=== PATIENT | male | born 1970 | race African-American/Black ===

== ENCOUNTER 2023-02-01 18:25 | Inpatient (IN) | payer OTHER ==
[2023-02-01 20:04] VITALS: BMI 18.7
[2023-02-01] MEDS ORDERED: MAGNESIUM HYDROX 2400MG/30ML ORAL SUSPENSION 30 ML CUP PO PRN (20:22)
[2023-02-01] MEDS ORDERED: POLYETHYLENE GLYCOL (HEALTHYLAX) 3350 17 GM PACKET PO PRN (20:22)
[2023-02-01] MEDS ORDERED: BISMUTH SUBSALICYLATE 524 MG/30 ML PO PRN (20:22)
[2023-02-01] MEDS ORDERED: BENZOCAINE/MENTHOL (CHLORASEPTIC ) LOZENGE MM PRN (20:22)
[2023-02-01] MEDS ORDERED: NICOTINE POLACRILEX 2 MG GUM BUC PRN (20:22)
[2023-02-01] MEDS ORDERED: ACETAMINOPHEN 325 MG TABLET (FP) PO PRN (20:22)
[2023-02-01] MEDS ORDERED: MAG HYDROX/AL HYDROX/SIMETH 30 ML UNIT-DOSE CUP PO PRN (20:22)
[2023-02-01] MEDS ORDERED: BENZONATATE 200 MG CAPSULE PO PRN (20:22)
[2023-02-01] MEDS ORDERED: chlordiazePOXIDE HCL 25 MG CAPSULE PO PRN (20:22)
[2023-02-01] MEDS ORDERED: IBUPROFEN 400 MG TABLET (FP) PO PRN (20:22)
[2023-02-01] MEDS ORDERED: ONDANSETRON *ODT* 4 MG TABLET SL PRN (20:22)
[2023-02-01] MEDS ORDERED: LOPERAMIDE HCL 2 MG CAPSULE PO PRN (20:22)
[2023-02-01] MEDS ORDERED: NALOXONE HCL (KLOXXADO) 8 MG SPRAY NS PRN (20:22)
[2023-02-01] MEDS ORDERED: NALOXONE HCL 0.4 MG/ML VIAL IM PRN (20:22)
[2023-02-01] MEDS ORDERED: DICYCLOMINE HCL 10 MG CAPSULE PO PRN (20:22)
[2023-02-01] MEDS ORDERED: IBUPROFEN 600 MG TABLET (FP) PO PRN (20:22)
[2023-02-01] MEDS ORDERED: guaiFENesin 600 MG TABLET.ER (FP) PO PRN (20:22)
[2023-02-01] MEDS: THIAMINE HCL 100 MG TABLET (FP) PO SCH (22:02)
[2023-02-01] MEDS: chlordiazePOXIDE HCL 25 MG CAPSULE PO SCH (22:03)
[2023-02-01] MEDS: MELATONIN 5 MG TABLETS PO SCH (22:03)
[2023-02-02] MEDS: chlordiazePOXIDE HCL 25 MG CAPSULE PO SCH ×4 (05:42→22:15)
[2023-02-02] MEDS: PRENATAL VITAMINS W/ FOLIC ACID TABLET (FP) PO SCH (10:08)
[2023-02-02] MEDS: NICOTINE 21 MG/24 HOURS TOPICAL PATCH TD SCH (10:11)
[2023-02-02 11:02] LABS: POTASSIUM 4.1 mmol/L (3.5-5.1)
[2023-02-02 11:05] LABS: HEMATOCRIT 34.7 % (35.4-49); MCH 31.9 pg (25.7-33.7); MCHC 34.6 g/dl (32.0-35.9); MEAN CELL VOLUME 92.3 fl (80-96); MEAN PLT VOLUME 9.7 fl (7.5-11.1); PLATELET COUNT 197 10^3/uL (134-434); RBC 3.76 M/mm3 (4.00-5.60); RDW 13.6 % (11.9-15.9); WHITE BLOOD COUNT 5.7 K/mm3 (4.0-10.0)
[2023-02-02 11:12] LABS: CALCIUM 9.4 mg/dL (8.5-10.1)
[2023-02-02 11:13] LABS: ALBUMIN 3.2 g/dl (3.4-5.0); BLOOD UREA NITROGEN 7.8 mg/dL (7-18)
[2023-02-02 11:16] LABS: CREATININE 0.9 mg/dL (0.55-1.3)
[2023-02-02 11:18] LABS: BILIRUBIN,TOTAL 0.8 mg/dL (0.2-1)
[2023-02-02 11:20] LABS: TOT PROT 7.2 g/dl (6.4-8.2)
[2023-02-02] MEDS: VALPROIC ACID 250 MG CAPSULE PO SCH ×2 (11:34→22:57)
[2023-02-02] MEDS ORDERED: FLU VACC QS2022-23(6MOS UP)/PF 60 MCG/0.5 ML SYRINGE IM ONE (12:00)
[2023-02-02] MEDS ORDERED: PNEUMOC 20-VAL CONJ-DIP CRM/PF 0.5 ML SYRINGE IM ONE (12:00)
[2023-02-02] MEDS: levETIRAcetam 250 MG TABLET PO SCH ×2 (14:22→22:14)
[2023-02-02] MEDS: THIAMINE HCL 100 MG TABLET (FP) PO SCH (22:14)
[2023-02-02] MEDS: MELATONIN 5 MG TABLETS PO SCH (22:14)
[2023-02-03] MEDS: chlordiazePOXIDE HCL 25 MG CAPSULE PO SCH ×4 (05:41→22:27)
[2023-02-03] MEDS: levETIRAcetam 250 MG TABLET PO SCH ×2 (10:16→22:24)
[2023-02-03] MEDS: VALPROIC ACID 250 MG CAPSULE PO SCH ×2 (10:16→22:25)
[2023-02-03] MEDS: PRENATAL VITAMINS W/ FOLIC ACID TABLET (FP) PO SCH (10:16)
[2023-02-03] MEDS: NICOTINE 21 MG/24 HOURS TOPICAL PATCH TD SCH (10:17)
[2023-02-03] MEDS ORDERED: FLU VACC QS2022-23(6MOS UP)/PF 60 MCG/0.5 ML SYRINGE IM ONE (12:00)
[2023-02-03] MEDS ORDERED: PNEUMOC 20-VAL CONJ-DIP CRM/PF 0.5 ML SYRINGE IM ONE (12:00)
[2023-02-03] MEDS: THIAMINE HCL 100 MG TABLET (FP) PO SCH (22:24)
[2023-02-03] MEDS: MELATONIN 5 MG TABLETS PO SCH (22:24)
[2023-02-04] MEDS ORDERED: chlordiazePOXIDE HCL 10 MG CAPSULE PO PRN
[2023-02-04] MEDS: chlordiazePOXIDE HCL 10 MG CAPSULE PO SCH ×4 (05:51→22:16)
[2023-02-04] MEDS: PRENATAL VITAMINS W/ FOLIC ACID TABLET (FP) PO SCH (10:11)
[2023-02-04] MEDS: levETIRAcetam 250 MG TABLET PO SCH ×2 (10:11→22:12)
[2023-02-04] MEDS: VALPROIC ACID 250 MG CAPSULE PO SCH ×2 (10:13→22:13)
[2023-02-04] MEDS: NICOTINE 21 MG/24 HOURS TOPICAL PATCH TD SCH (10:14)
[2023-02-04] MEDS ORDERED: PNEUMOC 20-VAL CONJ-DIP CRM/PF 0.5 ML SYRINGE IM ONE (12:00)
[2023-02-04] MEDS: MELATONIN 5 MG TABLETS PO SCH (22:12)
[2023-02-04] MEDS: THIAMINE HCL 100 MG TABLET (FP) PO SCH (22:12)
[2023-02-05] MEDS: chlordiazePOXIDE HCL 10 MG CAPSULE PO SCH ×2 (05:37→17:52)
[2023-02-05] MEDS: PRENATAL VITAMINS W/ FOLIC ACID TABLET (FP) PO SCH (10:34)
[2023-02-05] MEDS: VALPROIC ACID 250 MG CAPSULE PO SCH ×2 (10:35→22:10)
[2023-02-05] MEDS: levETIRAcetam 250 MG TABLET PO SCH ×2 (10:35→22:10)
[2023-02-05] MEDS: NICOTINE 21 MG/24 HOURS TOPICAL PATCH TD SCH (10:36)
[2023-02-05] MEDS: MELATONIN 5 MG TABLETS PO SCH (22:10)
[2023-02-05] MEDS: THIAMINE HCL 100 MG TABLET (FP) PO SCH (22:10)
[2023-02-06] MEDS ORDERED: chlordiazePOXIDE HCL 10 MG CAPSULE PO ONE (05:00)
[2023-02-06] MEDS: PRENATAL VITAMINS W/ FOLIC ACID TABLET (FP) PO SCH (10:23)
[2023-02-06] MEDS: VALPROIC ACID 250 MG CAPSULE PO SCH (10:23)
[2023-02-06] MEDS: levETIRAcetam 250 MG TABLET PO SCH (10:24)
[2023-02-06] MEDS: NICOTINE 21 MG/24 HOURS TOPICAL PATCH TD SCH (10:25)
[2023-02-06 13:32] VITALS: BP 129/86; PULSE 96; RESP 18; TEMP 98.1
== END 2023-02-06 03:15 | disposition other institution (70) | DRG 774 ==
LOC: YASAS 18:25 → Y3N 21:34
PROVIDERS: ADMIT Allergy & Immunology; ATTEND Surgery
PROC: HZ2ZZZZ Detoxification Services for Substance Abuse Treatment (ICD-10-PCS; principal; 2023-02-01)
DX: F10.230 Alcohol dependence with withdrawal, uncomplicated (principal); F14.20 Cocaine dependence, uncomplicated; F12.20 Cannabis dependence, uncomplicated; F17.210 Nicotine dependence, cigarettes, uncomplicated; F31.9 Bipolar disorder, unspecified; F19.282 Other psychoactive substance dependence with psychoactive substance-induced sleep disorder; F43.10 Post-traumatic stress disorder, unspecified; G40.909 Epilepsy, unspecified, not intractable, without status epilepticus; I10 Essential (primary) hypertension; Z62.810 Personal history of physical and sexual abuse in childhood; Z91.410 Personal history of adult physical and sexual abuse; Z87.820 Personal history of traumatic brain injury; Z99.89 Dependence on other enabling machines and devices
CPT/HCPCS: 36415; 80053; 85027; 86593; 86780; 90677; 93005; 93010; C9803-CS; G0008; Q2036; U0003; U0005

== ENCOUNTER 2023-02-06 14:40 | Inpatient (IN) | payer OTHER ==
[2023-02-06] MEDS ORDERED: MAG HYDROX/AL HYDROX/SIMETH 30 ML UNIT-DOSE CUP PO PRN (17:27)
[2023-02-06] MEDS ORDERED: P-EPHED 60MG/TRIPROLIDI 2.5MG TABLET PO PRN (17:27)
[2023-02-06] MEDS ORDERED: ACETAMINOPHEN 325 MG TABLET (FP) PO PRN (17:27)
[2023-02-06] MEDS ORDERED: LOPERAMIDE HCL 2 MG CAPSULE PO PRN (17:27)
[2023-02-06] MEDS ORDERED: IBUPROFEN 600 MG TABLET (FP) PO PRN (17:27)
[2023-02-06] MEDS ORDERED: BENZOCAINE/MENTHOL (CHLORASEPTIC ) LOZENGE MM PRN (17:27)
[2023-02-06] MEDS ORDERED: guaiFENesin 600 MG TABLET.ER (FP) PO PRN (17:27)
[2023-02-06] MEDS ORDERED: POLYETHYLENE GLYCOL (HEALTHYLAX) 3350 17 GM PACKET PO PRN (17:27)
[2023-02-06] MEDS ORDERED: COLLOIDAL OATMEAL 1 BAR EACH TP PRN (17:27)
[2023-02-06] MEDS ORDERED: NICOTINE 10 MG CARTRIDGE (INHALER) IH PRN (17:27)
[2023-02-06] MEDS ORDERED: IBUPROFEN 400 MG TABLET (FP) PO PRN (17:27)
[2023-02-06] MEDS ORDERED: AMMONIUM LACTATE 12% LOTION 225 GM BOTTLE TP PRN (17:27)
[2023-02-06] MEDS ORDERED: NICOTINE POLACRILEX 2 MG GUM BUC PRN (17:27)
[2023-02-06] MEDS ORDERED: BENZONATATE 200 MG CAPSULE PO PRN (17:27)
[2023-02-06] MEDS ORDERED: MAGNESIUM HYDROX 2400MG/30ML ORAL SUSPENSION 30 ML CUP PO PRN (17:27)
[2023-02-06] MEDS ORDERED: TUBERCULIN PPD 5 TU/0.1ML VIAL ID ONE (19:17)
[2023-02-06] MEDS: THIAMINE HCL 100 MG TABLET (FP) PO SCH (21:32)
[2023-02-06] MEDS: VALPROIC ACID 250 MG CAPSULE PO SCH (21:33)
[2023-02-06] MEDS: MELATONIN 5 MG TABLETS PO SCH (21:33)
[2023-02-06] MEDS ORDERED: levETIRAcetam 500 MG TABLET (FP) PO SCH (22:00)
[2023-02-06] MEDS: levETIRAcetam 250 MG TABLET PO SCH (22:09)
[2023-02-07] MEDS: levETIRAcetam 250 MG TABLET PO SCH ×2 (09:55→21:32)
[2023-02-07] MEDS: VALPROIC ACID 250 MG CAPSULE PO SCH ×2 (09:56→21:32)
[2023-02-07] MEDS: PRENATAL VITAMINS W/ FOLIC ACID TABLET (FP) PO SCH (09:56)
[2023-02-07] MEDS: MELATONIN 5 MG TABLETS PO SCH (21:31)
[2023-02-07] MEDS: THIAMINE HCL 100 MG TABLET (FP) PO SCH (21:31)
[2023-02-07] MEDS: QUEtiapine FUMARATE 50 MG TABLET PO SCH (21:33)
[2023-02-08] MEDS: levETIRAcetam 250 MG TABLET PO SCH ×2 (09:57→21:27)
[2023-02-08] MEDS: VALPROIC ACID 250 MG CAPSULE PO SCH ×2 (09:57→21:27)
[2023-02-08] MEDS: PRENATAL VITAMINS W/ FOLIC ACID TABLET (FP) PO SCH (09:58)
[2023-02-08] MEDS: NICOTINE 21 MG/24 HOURS TOPICAL PATCH TD PRN (12:11)
[2023-02-08] MEDS: MELATONIN 5 MG TABLETS PO SCH (21:28)
[2023-02-08] MEDS: THIAMINE HCL 100 MG TABLET (FP) PO SCH (21:28)
[2023-02-08] MEDS: QUEtiapine FUMARATE 50 MG TABLET PO SCH (21:28)
[2023-02-09] MEDS: levETIRAcetam 250 MG TABLET PO SCH ×2 (09:29→21:15)
[2023-02-09] MEDS: VALPROIC ACID 250 MG CAPSULE PO SCH ×2 (09:29→21:15)
[2023-02-09] MEDS: PRENATAL VITAMINS W/ FOLIC ACID TABLET (FP) PO SCH (09:29)
[2023-02-09] MEDS: NICOTINE 21 MG/24 HOURS TOPICAL PATCH TD PRN (09:31)
[2023-02-09] MEDS ORDERED: QUEtiapine FUMARATE 25 MG TABLET ONE (18:59)
[2023-02-09] MEDS: QUEtiapine FUMARATE 50 MG TABLET PO SCH (21:15)
[2023-02-09] MEDS: MELATONIN 5 MG TABLETS PO SCH (21:15)
[2023-02-09] MEDS: THIAMINE HCL 100 MG TABLET (FP) PO SCH (21:15)
[2023-02-10] MEDS: PRENATAL VITAMINS W/ FOLIC ACID TABLET (FP) PO SCH (09:42)
[2023-02-10] MEDS: levETIRAcetam 250 MG TABLET PO SCH ×2 (09:43→21:21)
[2023-02-10] MEDS: NICOTINE 21 MG/24 HOURS TOPICAL PATCH TD PRN (09:44)
[2023-02-10] MEDS: VALPROIC ACID 250 MG CAPSULE PO SCH ×2 (09:46→21:21)
[2023-02-10] MEDS: QUEtiapine FUMARATE 50 MG TABLET PO SCH (21:21)
[2023-02-10] MEDS: THIAMINE HCL 100 MG TABLET (FP) PO SCH (21:21)
[2023-02-10] MEDS: MELATONIN 5 MG TABLETS PO SCH (21:21)
[2023-02-11] MEDS: levETIRAcetam 250 MG TABLET PO SCH ×2 (10:00→21:16)
[2023-02-11] MEDS: NICOTINE 21 MG/24 HOURS TOPICAL PATCH TD PRN (10:02)
[2023-02-11] MEDS: VALPROIC ACID 250 MG CAPSULE PO SCH ×2 (10:02→21:16)
[2023-02-11] MEDS: PRENATAL VITAMINS W/ FOLIC ACID TABLET (FP) PO SCH (10:02)
[2023-02-11] MEDS: THIAMINE HCL 100 MG TABLET (FP) PO SCH (21:15)
[2023-02-11] MEDS: MELATONIN 5 MG TABLETS PO SCH (21:15)
[2023-02-11] MEDS: QUEtiapine FUMARATE 50 MG TABLET PO SCH (21:16)
[2023-02-12] MEDS: VALPROIC ACID 250 MG CAPSULE PO SCH ×2 (10:00→21:08)
[2023-02-12] MEDS: PRENATAL VITAMINS W/ FOLIC ACID TABLET (FP) PO SCH (10:00)
[2023-02-12] MEDS: levETIRAcetam 250 MG TABLET PO SCH ×2 (10:01→21:07)
[2023-02-12] MEDS: NICOTINE 21 MG/24 HOURS TOPICAL PATCH TD PRN (10:02)
[2023-02-12] MEDS: THIAMINE HCL 100 MG TABLET (FP) PO SCH (21:07)
[2023-02-12] MEDS: QUEtiapine FUMARATE 50 MG TABLET PO SCH (21:07)
[2023-02-12] MEDS: MELATONIN 5 MG TABLETS PO SCH (21:07)
[2023-02-13] MEDS: PRENATAL VITAMINS W/ FOLIC ACID TABLET (FP) PO SCH (09:44)
[2023-02-13] MEDS: levETIRAcetam 250 MG TABLET PO SCH ×2 (09:45→21:13)
[2023-02-13] MEDS: VALPROIC ACID 250 MG CAPSULE PO SCH ×2 (09:45→21:14)
[2023-02-13] MEDS: NICOTINE 21 MG/24 HOURS TOPICAL PATCH TD PRN (09:47)
[2023-02-13] MEDS: MELATONIN 5 MG TABLETS PO SCH (21:13)
[2023-02-13] MEDS: THIAMINE HCL 100 MG TABLET (FP) PO SCH (21:13)
[2023-02-13] MEDS: QUEtiapine FUMARATE 50 MG TABLET PO SCH (21:13)
[2023-02-14] MEDS: PRENATAL VITAMINS W/ FOLIC ACID TABLET (FP) PO SCH (09:29)
[2023-02-14] MEDS: VALPROIC ACID 250 MG CAPSULE PO SCH ×2 (09:30→21:10)
[2023-02-14] MEDS: levETIRAcetam 250 MG TABLET PO SCH ×2 (09:30→21:09)
[2023-02-14] MEDS: NICOTINE 21 MG/24 HOURS TOPICAL PATCH TD PRN (09:31)
[2023-02-14] MEDS: THIAMINE HCL 100 MG TABLET (FP) PO SCH (21:09)
[2023-02-14] MEDS: MELATONIN 5 MG TABLETS PO SCH (21:10)
[2023-02-14] MEDS: QUEtiapine FUMARATE 50 MG TABLET PO SCH (21:10)
[2023-02-15] MEDS: PRENATAL VITAMINS W/ FOLIC ACID TABLET (FP) PO SCH (09:42)
[2023-02-15] MEDS: VALPROIC ACID 250 MG CAPSULE PO SCH ×2 (09:42→21:09)
[2023-02-15] MEDS: levETIRAcetam 250 MG TABLET PO SCH ×2 (09:42→21:08)
[2023-02-15] MEDS: NICOTINE 21 MG/24 HOURS TOPICAL PATCH TD PRN (09:43)
[2023-02-15] MEDS: THIAMINE HCL 100 MG TABLET (FP) PO SCH (21:08)
[2023-02-15] MEDS: MELATONIN 5 MG TABLETS PO SCH (21:08)
[2023-02-15] MEDS: QUEtiapine FUMARATE 50 MG TABLET PO SCH (21:08)
[2023-02-16] MEDS: VALPROIC ACID 250 MG CAPSULE PO SCH ×2 (09:53→21:08)
[2023-02-16] MEDS: PRENATAL VITAMINS W/ FOLIC ACID TABLET (FP) PO SCH (09:54)
[2023-02-16] MEDS: levETIRAcetam 250 MG TABLET PO SCH ×2 (09:54→21:08)
[2023-02-16] MEDS: NICOTINE 21 MG/24 HOURS TOPICAL PATCH TD PRN (09:55)
[2023-02-16] MEDS: MELATONIN 5 MG TABLETS PO SCH (21:08)
[2023-02-16] MEDS: QUEtiapine FUMARATE 50 MG TABLET PO SCH (21:08)
[2023-02-16] MEDS: THIAMINE HCL 100 MG TABLET (FP) PO SCH (21:08)
[2023-02-17] MEDS: levETIRAcetam 250 MG TABLET PO SCH ×2 (10:01→21:18)
[2023-02-17] MEDS: PRENATAL VITAMINS W/ FOLIC ACID TABLET (FP) PO SCH (10:01)
[2023-02-17] MEDS: VALPROIC ACID 250 MG CAPSULE PO SCH ×2 (10:01→21:18)
[2023-02-17] MEDS: NICOTINE 21 MG/24 HOURS TOPICAL PATCH TD PRN (10:03)
[2023-02-17] MEDS: MELATONIN 5 MG TABLETS PO SCH (21:18)
[2023-02-17] MEDS: QUEtiapine FUMARATE 50 MG TABLET PO SCH (21:18)
[2023-02-17] MEDS: THIAMINE HCL 100 MG TABLET (FP) PO SCH (21:18)
[2023-02-18] MEDS: NICOTINE 21 MG/24 HOURS TOPICAL PATCH TD PRN (09:35)
[2023-02-18] MEDS: levETIRAcetam 250 MG TABLET PO SCH ×2 (09:35→21:21)
[2023-02-18] MEDS: VALPROIC ACID 250 MG CAPSULE PO SCH ×2 (09:36→21:21)
[2023-02-18] MEDS: PRENATAL VITAMINS W/ FOLIC ACID TABLET (FP) PO SCH (09:36)
[2023-02-18] MEDS: QUEtiapine FUMARATE 50 MG TABLET PO SCH (21:21)
[2023-02-18] MEDS: MELATONIN 5 MG TABLETS PO SCH (21:21)
[2023-02-18] MEDS: THIAMINE HCL 100 MG TABLET (FP) PO SCH (21:22)
[2023-02-19 06:39] VITALS: BP 147/84; PULSE 89; RESP 16; TEMP 98.4
[2023-02-19] MEDS: VALPROIC ACID 250 MG CAPSULE PO SCH (09:23)
[2023-02-19] MEDS: levETIRAcetam 250 MG TABLET PO SCH (09:23)
[2023-02-19] MEDS: PRENATAL VITAMINS W/ FOLIC ACID TABLET (FP) PO SCH (09:24)
== END 2023-02-19 09:58 | disposition home or self-care (01) | DRG 772 ==
LOC: YASAS 14:40 → Y3E 14:41
PROVIDERS: ADMIT Allergy & Immunology; ATTEND Psychiatry & Neurology Pain Medicine
PROC: HZ42ZZZ Group Counseling for Substance Abuse Treatment, Cognitive-Behavioral (ICD-10-PCS; principal; 2023-02-06)
DX: F10.20 Alcohol dependence, uncomplicated (principal); F14.20 Cocaine dependence, uncomplicated; F17.210 Nicotine dependence, cigarettes, uncomplicated; F12.20 Cannabis dependence, uncomplicated; F31.9 Bipolar disorder, unspecified; F43.10 Post-traumatic stress disorder, unspecified; I10 Essential (primary) hypertension; G40.909 Epilepsy, unspecified, not intractable, without status epilepticus; N39.46 Mixed incontinence; R53.1 Weakness; Z87.820 Personal history of traumatic brain injury; Z99.89 Dependence on other enabling machines and devices; Z91.148 Patient's other noncompliance with medication regimen for other reason
CPT/HCPCS: 36415; 80164; 80177

== ENCOUNTER 2024-04-12 15:51 | Inpatient (IN) | payer OTHER ==
[2024-04-12 16:44] VITALS: BMI 18.3
[2024-04-12] MEDS ORDERED: BISMUTH SUBSALICYLATE 524 MG/30 ML PO PRN (17:33)
[2024-04-12] MEDS ORDERED: QUEtiapine FUMARATE 25 MG TABLET PO PRN (17:33)
[2024-04-12] MEDS ORDERED: LOPERAMIDE HCL 2 MG CAPSULE PO PRN (17:33)
[2024-04-12] MEDS ORDERED: chlordiazePOXIDE HCL 25 MG CAPSULE PO PRN (17:33)
[2024-04-12] MEDS ORDERED: traZODone HCL 50 MG TABLET (FP) PO PRN (17:33)
[2024-04-12] MEDS ORDERED: IBUPROFEN 400 MG TABLET (FP) PO PRN (17:33)
[2024-04-12] MEDS ORDERED: guaiFENesin 600 MG TABLET.ER (FP) PO PRN (17:33)
[2024-04-12] MEDS ORDERED: ACETAMINOPHEN 325 MG TABLET (FP) PO PRN (17:33)
[2024-04-12] MEDS ORDERED: DICYCLOMINE HCL 10 MG CAPSULE PO PRN (17:33)
[2024-04-12] MEDS ORDERED: NICOTINE POLACRILEX 2 MG GUM BUC PRN (17:33)
[2024-04-12] MEDS ORDERED: MAG HYDROX/AL HYDROX/SIMETH 30 ML UNIT-DOSE CUP PO PRN (17:33)
[2024-04-12] MEDS ORDERED: ONDANSETRON *ODT* 4 MG TABLET SL PRN (17:33)
[2024-04-12] MEDS ORDERED: BENZONATATE 200 MG CAPSULE PO PRN (17:33)
[2024-04-12] MEDS ORDERED: POLYETHYLENE GLYCOL (HEALTHYLAX) 3350 17 GM PACKET PO PRN (17:33)
[2024-04-12] MEDS ORDERED: BENZOCAINE/MENTHOL (CHLORASEPTIC ) LOZENGE MM PRN (17:33)
[2024-04-12] MEDS ORDERED: MAGNESIUM HYDROX 2400MG/30ML ORAL SUSPENSION 30 ML CUP PO PRN (17:33)
[2024-04-12] MEDS ORDERED: chlordiazePOXIDE HCL 25 MG CAPSULE ONE (18:02)
[2024-04-12] MEDS: chlordiazePOXIDE HCL 25 MG CAPSULE PO ONE (18:08)
[2024-04-12] MEDS ORDERED: VALPROIC ACID 250 MG PO SCH (22:00)
[2024-04-12] MEDS: THIAMINE 100 MG TABLET PO SCH (22:07)
[2024-04-12] MEDS: MELATONIN 5 MG TABLETS PO SCH (22:07)
[2024-04-12] MEDS: levETIRAcetam 250 MG TABLET PO SCH (22:07)
[2024-04-12] MEDS: chlordiazePOXIDE HCL 25 MG CAPSULE PO SCH (22:08)
[2024-04-12] MEDS: VALPROIC ACID 250 MG CAPSULE PO SCH (22:50)
[2024-04-13] MEDS: NICOTINE 14 MG/24 HOURS TOPICAL PATCH TD SCH (10:25)
[2024-04-13] MEDS: PRENATAL VITAMINS W/ FOLIC ACID TABLET (FP) PO SCH (10:25)
[2024-04-13 11:17] LABS: CHLORIDE 102 mmol/L (98-107); POTASSIUM 4.6 mmol/L (3.5-5.1); SODIUM 139 mmol/L (136-145)
[2024-04-13 11:23] LABS: ALBUMIN 3.4 g/dl (3.4-5.0); ANION GAP 4 mmol/L (4-13); CALCIUM 9.6 mg/dL (8.5-10.1); CO2 32 mmol/L (21-32); GLUCOSE,RANDOM 117 mg/dL (74-106); HEMATOCRIT 36.6 % (35.4-49); HEMOGLOBIN 12.3 GM/dL (11.7-16.9); MCH 31.5 pg (25.7-33.7); MCHC 33.6 g/dl (32.0-35.9); MEAN CELL VOLUME 93.9 fl (80-96); MEAN PLT VOLUME 9.8 fl (7.5-11.1); PLATELET COUNT 154 10^3/uL (134-434); WHITE BLOOD COUNT 4.4 K/mm3 (4.0-10.0)
[2024-04-13 11:25] LABS: BLOOD UREA NITROGEN 7.9 mg/dL (7-18)
[2024-04-13 11:26] LABS: CREATININE 1.1 mg/dL (0.55-1.3); SGOT/AST 61 U/L (15-37); SGPT/ALT 40 U/L (13-61)
[2024-04-13 11:27] LABS: BILIRUBIN,TOTAL 0.6 mg/dL (0.2-1)
[2024-04-13 11:28] LABS: ALK PHOS 96 U/L (45-117)
[2024-04-13] MEDS: hydrOXYzine PAMOATE 25 MG CAPSULE (FP) PO PRN (17:19)
[2024-04-13] MEDS: IBUPROFEN 600 MG TABLET (FP) PO PRN (17:19)
[2024-04-13] MEDS: QUEtiapine FUMARATE 50 MG TABLET PO SCH (22:27)
[2024-04-13] MEDS: traZODone HCL 50 MG TABLET (FP) PO SCH (22:30)
[2024-04-14] MEDS: chlordiazePOXIDE HCL 25 MG CAPSULE PO SCH (05:40)
[2024-04-14 16:13] LABS: HIV INTERPRETATION NEGATIVE (NEGATIVE)
[2024-04-15] MEDS ORDERED: chlordiazePOXIDE HCL 10 MG CAPSULE PO PRN
[2024-04-15] MEDS: chlordiazePOXIDE HCL 10 MG CAPSULE PO SCH (06:00)
[2024-04-16] MEDS: chlordiazePOXIDE HCL 10 MG CAPSULE PO SCH (06:09)
[2024-04-17] MEDS: chlordiazePOXIDE HCL 10 MG CAPSULE PO ONE (05:39)
[2024-04-18 09:52] VITALS: BP 114/70; PULSE 76; RESP 18; TEMP 97.8
== END 2024-04-18 10:46 | disposition home or self-care (01) | DRG 773 ==
LOC: SUATTDRO 15:51 → YASAS 15:51 → Y3N 17:48
PROVIDERS: ADMIT Allergy & Immunology; ATTEND Surgery
PROC: HZ2ZZZZ Detoxification Services for Substance Abuse Treatment (ICD-10-PCS; principal; 2024-04-12)
DX: F11.23 Opioid dependence with withdrawal (principal); F10.230 Alcohol dependence with withdrawal, uncomplicated; F14.20 Cocaine dependence, uncomplicated; F12.20 Cannabis dependence, uncomplicated; F31.9 Bipolar disorder, unspecified; G40.909 Epilepsy, unspecified, not intractable, without status epilepticus; I10 Essential (primary) hypertension; S69.82XA Other specified injuries of left wrist, hand and finger(s), initial encounter; W19.XXXA Unspecified fall, initial encounter; Y92.230 Patient room in hospital as the place of occurrence of the external cause; Z87.820 Personal history of traumatic brain injury; Z99.89 Dependence on other enabling machines and devices; Z91.148 Patient's other noncompliance with medication regimen for other reason; Z62.810 Personal history of physical and sexual abuse in childhood; Z91.410 Personal history of adult physical and sexual abuse; Z91.85 Personal history of military service
CPT/HCPCS: 36415; 73110-TC-LT-FY; 80053; 80305; 80307; 85027; 86593; 86780; 86803; 87389; 93005; 93010